=== PATIENT | female | born 1935 | race Caucasian/White ===

== ENCOUNTER 2017-03-28 08:28 | Inpatient (IN) | payer MEDICARE, OTHER ==
[2017-03-15 16:19] LABS: ASCORBIC ACID (UR NOT ORDER) 40 (NEG); BILIRUBIN, URINE NEGATIVE (NEG); KETONE, URINE NEGATIVE (NEG); LEUKOCYTE ESTERASE(NOT OR TRACE (NEG); WBC (NOT ORDERED) (RFLEX) 2 (0-5)
[2017-03-15 17:38] LABS: BASOPHILS 0.3 %; BASOPHILS ABSOLUTE 0.03 10/3/uL (0.0-0.16); EOSINOPHILS 2.2 %; EOSINOPHILS ABSOLUTE 0.21 10/3/uL (0.0-0.53); HEMATOCRIT 34.7 % (36.0-48.0); HEMOGLOBIN 11.6 g/dL (12.0-16.0); IMMATURE GRANULOCYTES 0.4 %; IMMATURE GRANULOCYTES ABSOLUTE 0.04 10/3/uL (0.0-0.11); LYMPHOCYTES 27.7 %; MEAN CORPUS HGB CONC 33.4 g/dL (32.0-36.0); MEAN CORPUSCULAR HEMOGLOB 29.7 pg (26.0-34.0); MEAN PLATELET VOLUME 9.8 fL (9.2-13.0); MONOCYTES ABSOLUTE 0.88 10/3/uL (0.21-1.20); NEUTROPHILS 60.4 %; RBC DISTRIBUTION WIDTH 13.4 % (12.0-16.0); RED CELL COUNT 3.91 10/6/uL (4.0-5.6); WHITE BLOOD CELLS 9.8 10/3/uL (4.5-10.5)
[2017-03-15 17:41] LABS: MANUAL DIFF NO %; MEAN CORPUSCULAR VOLUME 88.7 fL (80-100); PLATELET COUNT 290 10/3/uL (150-400)
[2017-03-15 17:53] LABS: A/G RATIO 1.1 (0.7-1.9); ALBUMIN 3.9 G/DL (3.5-5.0); CALCIUM, SERUM 9.9 MG/DL (8.5-10.4); CHLORIDE, SERUM 101 MMOL/L (96-112); CO2 (CARBON DIOXIDE) 28 MMOL/L (24-34); CREATININE 0.84 MG/DL (0.55-1.02); GFR AFRICAN AMERICAN 77 ML/MIN (>=60); GFR NON AFRICAN AMERICAN 66 ML/MIN (>=60); GLOBULIN 3.4 G/DL (2.5-4.1); POTASSIUM, SERUM 3.7 MMOL/L (3.5-5.3); PROTIME (NOT ORD) 13.5 SEC (12.0-14.5); SGOT(AST) 29 U/L (5-40); SGPT(ALT) 33 U/L (5-65); SODIUM, SERUM 137 MMOL/L (135-148); TOTAL BILIRUBIN 0.5 MG/DL (0-1.2); TOTAL PROTEIN 7.3 G/DL (6.0-8.5)
[2017-03-15 17:55] LABS: ALKALINE PHOSPHATASE 74 U/L (45-117); BUN (BLOOD UREA NITROGEN) 34 MG/DL (6-23); GLUCOSE, SERUM 89 MG/DL (60-99)
--- NOTE | ~2017-03-28 | DS ---
Discharge Summary [facility] [address] [place]. [address] NAME: PRITI SCOTT : 37 STATUS : DIS IN PAT#: [id number] AGE: 81 ADM/REG DATE : 03/28/17 MR#: [id number] REPORT SERV DATE: 04/10/17 DICTATED BY: AMALIA MCMAHON DATE: 04/07/17 REPORT STATUS : Draft TRANSCRIBED BY: MARCI DATE: 04/07/17 Data Collection from hospitalization DISCHARGE DIAGNOSIS(ES): 1. Severe right knee degenerative joint disease. 2. Hypertension. 3. Mild mitral regurgitation. 4. Chronic obstructive pulmonary disease. 5. History of coronary artery disease. 6. Gastroesophageal reflux disease. CONSULTATIONS: None. PROCEDURES PERFORMED: Right posterior stabilized total knee replacement, cemented, 03/28/2017. PATHOLOGY: Bone and joint right knee total knee degenerative changes with osteopenia, bone marrow areas of trilineage hematopoiesis present, synovial hyperplasia, no crystals. MEDICATIONS: Aspirin 81 mg daily, Plavix 37.5 mg daily, vitamin B12 of 1000 mcg IM every 30 days, Caltrate 600 mg every morning, vitamin D3 of 10,000 units weekly on Fridays, Colace 100 mg twice daily, ferrous sulfate 300 mg with breakfast and supper, Isordil 5 mg twice daily, Lozol 2.5 mg every morning, Prinivil 20 mg twice daily, Zyrtec 10 mg daily, Singulair 10 mg every morning, Theragran tablet without minerals one with breakfast, Lopressor 50 mg every evening, Protonix 40 mg before breakfast, MiraLAX powder one packet daily, Evista 60 mg every morning, Senokot two tablets at bedtime, Coumadin as directed, Ambien 10 mg at bedtime, Tylenol 650 mg every four hours as needed, Zovirax 800 mg three times daily as needed, Mylanta 30 mL as needed, Dulcolax 15 mg as needed, Bentyl 10 mg three times daily as needed, [place] 5/325 one or two every 4 hours as needed, Ultram 50 mg every 8 hours as needed, milk of magnesia 30 mL as needed, Zofran 4 mg every four hours as needed, MiraLAX powder one packet twice daily as needed, Prevacid 15 mg daily, and Lodrane 24 one at bedtime. CONDITION AT DISCHARGE: Upon discharge, she did appear to be doing well and had no complaints. DISPOSITION: She was discharged with transfer to [facility] to continue a regular diet with activity as discussed. She was to follow up as directed. HOSPITAL COURSE: This 81-year-old female was seen in the clinic with complaints of minor to severe constant bilateral hip pain, symptomatic for six months. The approximate date of onset was 8 years prior. Location of the knee pain was medial, lateral, across the patella, behind the knee, and patellar tubercle. Her pain was intensified with activity and was also worse at night, and upon arising, history of treatment included meloxicam with no relief. She denied any prior physical therapy, but did state prior injection did give relief for two weeks. She was admitted for surgery and further treatment. Upon admission to the hospital, she had been taken to the operating room where she did undergo the above procedure. She had tolerated this well and was transferred to the recovery room. On postop day #1, she had Discharge Summary [address] [address] NAME: PRITI SCOTT : 37 STATUS : DIS IN PAT#: [id number] AGE: 81 ADM/REG DATE : 03/28/17 MR#: [id number] REPORT SERV DATE: 04/10/17 DICTATED BY: AMALIA MCMAHON DATE: 04/07/17 REPORT STATUS : Draft TRANSCRIBED BY: MARCI DATE: 04/07/17 been evaluated by Physical Therapy. She did appear to be doing well postoperatively. She was afebrile, and her vital signs were stable. Her INR was at 1.2. On postop day #2, she did continue to do well, however, had complaints of increased pain to the knee and did also have some nausea and complaints of constipation. She continued to make slow progress. Her hemoglobin was at 8.3, hematocrit 24.5. On postop day #3, she did continue to do well. She did state that she was feeling much better. She did remain in stable condition and was then discharged on 03/31/2017 with the above instructions. Information collected by: Jes Gamble. I submit the above information as my discharge summary. CONNOR/MARCI Sanjay Mcmahon M.D. / [id number] CC: [facility]Br[facility]
--- NOTE | ~2017-03-28 | OP ---
Record Of Operation [facility] [address] [place]. [address] NAME: PRITI SCOTT : 37 STATUS : ADM IN PAT#: [id number] AGE: 81 ADM/REG DATE : 03/28/17 MR#: [id number] REPORT SERV DATE: 03/28/17 DICTATED BY: AMALIA MCMAHON DATE: 03/28/17 REPORT STATUS : Draft TRANSCRIBED BY: MODRufus DATE: 03/28/17 DATE OF PROCEDURE: 03/28/2017 PREOPERATIVE DIAGNOSIS: Severe right knee degenerative joint disease. POSTOPERATIVE DIAGNOSIS: Severe right knee degenerative joint disease. OPERATION: Right posterior stabilized total knee replacement, cemented. SIDE: Right. SIZE: See chart. ANESTHESIA: See chart. ESTIMATED BLOOD LOSS: About 10 mL. TOURNIQUET TIME: Approximately 1 hour and 10 minutes. COMPLICATIONS: None. SPECIMENS: Articular surfaces. PROCEDURE IN DETAIL: The patient was appropriately identified and marked. The operative side agreed with the consent form and it was checked by all members of the surgical team. The patient was taken to the operating room and anesthesia was induced per the anesthesiologist. The patient was carefully transferred to the operating table without incident. The patient received appropriate prophylactic antibiotics and a De La Cruz catheter was placed in the standard sterile technique. The patient was then carefully positioned, padded, prepped and draped in the normal sterile fashion. The operative leg had been appropriately identified and checked by all members of the operating team against the consent form and found to be the correct limb. The patient's lower extremity was then exsanguinated with an Nilay wrap and a tourniquet was inflated to 350 mm/Hg. Sharp dissection was carried out through a straight midline longitudinal incision and electrocautery through the fat. Sharp quad splitting approach was carried out between about the medial 10 percent of the tendon and the lateral 90 percent of the tendon and down around the medial aspect of the patella and then 1 cm medial to the tibial tubercle. The patella was carefully everted and the posterior fat pad was excised and gentle MCL elevation was carried out off the proximal medial tibia subperiosteally. IM guide was placed in the distal femur after using the appropriate drill. The distal femoral cutting guide was held with 2 pins and the distal cut made. Meniscal fragments and the ACL and the PCL were excised with electrocautery, carefully staying anterior to the posterior fat pad. The proximal tibial alignment guide was set appropriately and the proximal tibial cut made. Spacer block verified full extension with excellent mediolateral balance. Sizing guide was used to place 2 drill holes in the distal femur and the four-in-one cutting block was then placed, impacted and checked Record Of Operation [facility] [address] [place]. [address] NAME: PRITI SCOTT : 37 STATUS : ADM IN PAT#: [id number] AGE: 81 ADM/REG DATE : 03/28/17 MR#: [id number] REPORT SERV DATE: 03/28/17 DICTATED BY: AMALIA MCMAHON DATE: 03/28/17 REPORT STATUS : Draft TRANSCRIBED BY: MARCI DATE: 03/28/17 to be sure it would not notch with an ezekiel wing and it was held with 2 pins. The anterior cut, posterior cut, anterior chamfer and posterior chamfer cuts were made. The pins were removed and the block was removed. A posterior release was carried out with a curved 3/4 inch osteotome staying right on the bone posteriorly. The box-cut guide was then placed, impacted and held with 2 pins and a reciprocating saw was used to cut out the box. With the trial components in place, there was excellent medial/lateral balance. The patella was then measured with a caliper, cut first with an oscillating saw and then reamed with a patella reamer. With the trial patella in place, there was excellent patellar tracking. Rotation was marked on the tibia and the tibia prepared with a drill and stamp chisel. All surfaces were then copiously irrigated with pulsatile lavage, carefully dried and then vacuum-mixed cement was pressurized with a cement gun in a doughy phase. The tibial component was placed, impacted and excess cement was removed. The cement was then pressurized in the femur and placed on the posterior runners of the femoral component, which was placed, impacted and excess cement removed and the knee was brought out into extension on a trial spacer. The cement was then pressurized in the patella. Patellar component was then placed, clamped and excess cement was removed. Once all cement was hardened, the knee was taken through range of motion. Further extruded cement was removed with a small osteotome. Then based on the trial inserts, we decided on the actual insert, which was placed in the standard fashion and held with a locking mechanism. The knee was then copiously irrigated and then closed in a layered fashion over a medium Hemovac drain superolaterally with interrupted #1 in the deep fascia, 2-0 subcutaneous and saji in the skin. The wounds were dressed sterilely and the tourniquet was deflated. The patient was then awakened and taken to the postanesthesia care unit without incident. All counts were correct at the end of the case. BENB/MARCI Sanjay Mcmahon M.D. / [id number] CC: Sanjay Mcmahon M.D.
[~2017-03-28 08:28] MED LIST: AMB10 PO; B121000P IM; BENTYL10 PO; CALTRA600D PO; CLARIT10 PO; EVISTA60 PO; Feldene; HALF81 PO; ISORDIL10 PO; IVVIBRA; LODRANE PO; LOP50 PO; LOZOLTAB PO; MOBIC7.5 PO; NEXIUM40 PO; PCET PO; PLAVIX PO; PREV15 PO; PRIN20 PO; SINGULAIR1 PO; ULTRAM50 PO; VITAMIN D31000 UNIT PO; ZOVI800 PO; ZYRTEC ALLGY10 MG PO; [UNRECOGNIZED DRUG - REMARK]
[2017-03-29 04:24] LABS: HEMATOCRIT 26.7 % (36.0-48.0)
[2017-03-29 04:31] LABS: INTERNATIONAL NORMAL RATI 1.2 UNITS (-); PROTIME (NOT ORD) 15.4 SEC (12.0-14.5)
[2017-03-29 04:35] LABS: CALCIUM, SERUM 9.1 MG/DL (8.5-10.4); CHLORIDE, SERUM 105 MMOL/L (96-112); CO2 (CARBON DIOXIDE) 28 MMOL/L (24-34); CREATININE 0.79 MG/DL (0.55-1.02); GFR AFRICAN AMERICAN 83 ML/MIN (>=60); GFR NON AFRICAN AMERICAN 71 ML/MIN (>=60); POTASSIUM, SERUM 3.8 MMOL/L (3.5-5.3); SODIUM, SERUM 138 MMOL/L (135-148)
[2017-03-29 04:36] LABS: BUN (BLOOD UREA NITROGEN) 27 MG/DL (6-23); GLUCOSE, SERUM 114 MG/DL (60-99)
[2017-03-30 05:19] LABS: HEMATOCRIT 24.5 % (36.0-48.0); HEMOGLOBIN 8.3 g/dL (12.0-16.0)
[2017-03-30 05:26] LABS: INTERNATIONAL NORMAL RATI 2.1 UNITS (-)
[2017-03-31 04:59] LABS: HEMATOCRIT 25.8 % (36.0-48.0); HEMOGLOBIN 8.9 g/dL (12.0-16.0)
[2017-03-31 05:03] LABS: PROTIME (NOT ORD) 22.7 SEC (12.0-14.5)
== END 2017-03-31 14:31 | disposition home or self-care (01) | DRG 470 ==
LOC: SDC/OF 08:28 → PACU 12:17 → 3SO 14:00
PROVIDERS: Specialist
PROC: 0SRC0J9 Replacement of Right Knee Joint with Synthetic Substitute, Cemented, Open Approach (ICD-10-PCS; principal; 2017-03-28 10:15)
DX: M17.11 Unilateral primary osteoarthritis, right knee (principal); D62 Acute posthemorrhagic anemia; I10 Essential (primary) hypertension; K21.9 Gastro-esophageal reflux disease without esophagitis
CPT/HCPCS: 71020; 80048; 80053; 81001; 85014; 85018; 85025; 85610; 87641; 88305; 88311; 93005; 97110-GP; 97116-GP; 97161-GP; 97165-GO; A9270-GY; C1776; J0690; J1580; J1885; J2250; J2270; J2370; J2405; J2795; J3010